=== PATIENT | male | born 1950 | race Caucasian/White ===

== ENCOUNTER 2016-12-20 15:34 | Emergency (ER) | payer OTHER ==
--- NOTE | 2016-12-20 16:32 | Diag Imaging Result Document ---
PROCEDURE NAME: ANKLE COMPLETE LEFT - 12/20/2016 LEFT ANKLE, THREE VIEWS: FINDINGS: No fracture. No dislocation. Minimal medial joint space narrowing. IMPRESSION: No acute bony injury.
--- NOTE | 2016-12-20 16:43 | PROVIDER DOCUMENTATION ---
HPI-Musculoskeletal Pain/Inj - GENERAL Chief Complaint: Extremity Pain Stated Complaint: LEFT LEG PAIN/RT SHOULDER PAIN Time Seen by Provider: 12/20/16 16:26 Source: patient - HX OF PRESENT ILLNESS-MUSKULOSKELTAL Nature of Presenting Problem: Pt is a 66 y/o male c chief complaint of contusion to his L ankle and R shoulder x 1 week. Pt states he recalls hitting his shoulder but does not recall injuring his ankle. Pt is on plavix and states he bruises easily. Pt was told by a family member that he may have a blood clot in his ankle because of the contusion. Pt has a h/o severe anxiety. On arrival, pt is mildly anxious but in no acute distress. He denies shortness of breath and chest pain. Review of Systems - Adult - REVIEW OF SYSTEMS - ADULT Constitutional: reports: no symptoms reported. denies: chills, fatique Eyes: reports: no symptoms reported. denies: blurred vision, double vision Ears, Nose, Mouth & Throat: reports: no symptoms reported. denies: ear pain, nose pain Cardiovascular: reports: no symptoms reported. denies: chest pain, irregular heart rate Respiratory: reports: no symptoms reported. denies: cough, shortness of breath Gastrointestinal: reports: no symptoms reported. denies: abdominal pain, nausea Genitourinary: reports: no symptoms reported. denies: dysuria, hematuria Musculoskeletal: reports: joint pain. denies: joint swelling Integumentary: reports: no symptoms reported. denies: itching, rash Neurological: reports: no symptoms reported. denies: numbness, paresthesia Psychiatric: reports: no symptoms reported. denies: anxiety, emotional problems Endocrine: reports: no symptoms reported. denies: cold intolerance, heat intolerance Hematologic/Lymphatic: reports: no symptoms reported. denies: blood clots, low blood count Allergic/Immunologic: reports: no symptoms reported. denies: allergic reactions , food allergy All Other Systems: Reviewed and Negative Past History - Adult - PAST MEDICAL HISTORY-ADULT Review of Records: reports: Old Records Reviewed, Nursing Assessment Review, Medications Reviewed, Social history reviewed & non-contributory. Major Childhood Illnesses: reports: denies history Cardiovascular: reports: CAD, HTN, hyperlipidemia Respiratory: reports: COPD Gastrointestinal: reports: denies history Obstetrical/Gynecological: reports: denies history Genitourinary: reports: prostate cancer Musculoskeletal: reports: chronic pain (neck and back) Neurological: reports: denies history Psychiatric: reports: anxiety (severe) Endocrine/Immune: reports: denies history Other Conditions: reports: denies history - PRIOR SURGERIES/PROCEDURES Surgical/Procedure History: reports: cardiac stent - IMMUNIZATION STATUS Childhood Immunizations: See Nurse Assessment Flu Vaccine: See Nurse Assessment - FAMILY HISTORY Family History: reviewed, not pertinent - SOCIAL HISTORY Smoking: cigarettes Provider spent 3-5 mins advising pt. on dangers of tobacco.: Discussed manners to quit use, and f/u contacts for add'l counseling. Substance Use: none presently/history of abuse (alcohol) Alcohol Use Frequency: sober (former use) Living Situation: family Physical Exam-Injury Related - Physical Exam-Injury Related Initial Vital Signs Reviewed: Yes General Appearance: appears well, alert, no apparent distress Eyes: PERRL/EOMI, pink conjunctivae Head, Ears, Nose, Mouth & Throat: normocephalic/atraumatic, moist mucous membranes, normal ENT inspection Neck: non-tender, full range of motion, supple Respiratory: chest non-tender, lungs clear, normal breath sounds Cardiovascular: normal peripheral pulses, regular rate, rhythm, no edema Abdominal Exam: normal bowel sounds, non tender, soft Lymphatic: no adenopathy Back Exam: normal inspection, no CVA tenderness Extremity: other (fading contusion to R anterior shoulder; full ROM. Ecchymosis to L medial ankle and L medial foot that appears to be fading; mild tenderness to area of contusion. Homen's sign negative, no pain to the popliteal fossa.) Progress - PLAN OF CARE/RESULTS Progress/Plan/Lab Results: Orders Category Date Time Status ANKLE COMPLETE LEFT [RAD] Stat Exams 12/20/16 15:51 Completed TRAUMA SHOULDER RIGHT [RAD] Stat Exams 12/20/16 15:51 Completed Vital Signs - 24 hr 12/20/16 12/20/16 15:45 17:53 Temperature 98.4 F Pulse Rate 87 73 Respiratory 18 18 Rate Blood Pressure 174/81 136/64 O2 Sat by Pulse 98 98 Oximetry - REASSESSMENT Reassessment #1 Time Reassessed: 17:44 (DISCUSSED C DR. WATKINS ([facility] WHO AGREED C PLAN OF CARE AND AGREED NO NEED FOR A VASCULAR ULTRASOUND DUE TO THE SUPERFICIAL NATURE OF THE HEMATOMA AND IMPROVING SYMTPOMS OVER 7 DAYS AND THE PT IS ALREADY ON ANTICOAGULANTS. ) - XRAY 1 XRAY: Right XRAY Study: Shoulder Impression: Normal XRAY Interpretation: CARMINA RIZVI 2 XRAY: Left XRAY Study: Ankle Impression: Normal XRAY Interpretation: CARMINA RIZVI Departure - Departure Time of Disposition Order: 17:42 DIAGNOSIS: Thrombophlebitis Disposition: HOME 01 Certified Medical Emergency: Emergent Condition: Stable Additional Instructions: FOLLOW UP WITH DR. AVILA (VASCULAR AND GENERAL SURGERY) FOR FURTHER EVALUATION OF SUPERFICIAL VENOUS INFLAMMATION. ED Follow Up Instructions: You have been treated by a care provider in the Emergency Department. These instructions are being provided to you so you can have an understanding of how to care for yourself upon discharge. Upon discharge from the Emergency Department, you are responsible for making arrangements for follow-up care by a physician of your choice. Take all prescribed medications as directed. Return to the Emergency Department immediately for any new or worsening symptoms. You may call the Physician Referral phone number at [phone] to obtain a list of Physicians who are taking new patients. Prescriptions: Clindamycin [Cleocin] 150 mg PO Q6HR #30 capsule Referrals: Augusto Westbrook MD [Primary Care Provider] - Call for Appoint. 1-2days Kevin Avila MD [STAFF PHYSICIAN] - Call for Appoint. 1-2days Instructions: Phlebitis, [id number] Attestation - Physician/ NICOLLE Attestation Patient care was provided by Advanced Practice Provider:: Yes Advanced Practice Provider:: Ankur Tamez Advanced Practice Provider documentation review:: The Mid-level provider documentation, treatment plan and medical decision making was reviewed by the physician who agrees with all treatment and medical decision making by the MLP.
--- NOTE | 2016-12-20 16:50 | Diag Imaging Result Document ---
PROCEDURE NAME: TRAUMA SHOULDER RIGHT - 12/20/2016 RIGHT SHOULDER THREE VIEWS INCLUDING AN AXILLARY Y VIEW: FINDINGS: No separation at the acromioclavicular joint. No fracture. No dislocation. IMPRESSION: No acute bony injury.
[2016-12-20 17:54] VITALS: BP 136/64
== END 2016-12-20 18:04 | disposition home or self-care (01) ==
LOC: ED 15:34
DX: I80.9 Phlebitis and thrombophlebitis of unspecified site (principal); M25.511 Pain in right shoulder; M79.605 Pain in left leg; S90.02XA Contusion of left ankle, initial encounter; S40.011A Contusion of right shoulder, initial encounter; I25.10 Atherosclerotic heart disease of native coronary artery without angina pectoris; I10 Essential (primary) hypertension; E78.5 Hyperlipidemia, unspecified; Z79.899 Other long term (current) drug therapy; J44.9 Chronic obstructive pulmonary disease, unspecified; G89.29 Other chronic pain; M54.2 Cervicalgia; M54.9 Dorsalgia, unspecified; F17.210 Nicotine dependence, cigarettes, uncomplicated; Z79.02 Long term (current) use of antithrombotics/antiplatelets; Z79.82 Long term (current) use of aspirin; Z71.6 Tobacco abuse counseling; Z85.46 Personal history of malignant neoplasm of prostate; Z95.5 Presence of coronary angioplasty implant and graft; M25.572 Pain in left ankle and joints of left foot; W22.8XXA Striking against or struck by other objects, initial encounter

== ENCOUNTER 2019-01-16 11:20 | Inpatient (IN) ==
[~2019-01-16 11:20] MED LIST: SOLU-MEDROL IV ONE
[2019-01-16] MEDS ORDERED: SOLU-MEDROL ONE (11:23)
[2019-01-16] MEDS: LABETALOL IV ONE ×2 (11:29→12:52)
[2019-01-16] MEDS ORDERED: ASPIRIN PO ONE (11:43)
[2019-01-16 12:04] LABS: BASO# 0.06 X1000 (0.0-0.2); BASO% 0.5 % (0.0-0.8); EOS# 0.38 X1000 (0.0-0.7); EOS% 3.5 % (0.0-10.0); HEMATOCRIT 35.6 % (42.0-52.0); HEMOGLOBIN 12.2 g/dL (14.0-18.0); LYMPH# 3.33 X1000 (1.2-3.4); LYMPH% 30.3 % (20.5-51.1); MCHC 34.3 g/dL (33-37); MCV 81.7 FL (81-99); MONO# 1.07 X1000 (0.11-0.59); MONO% 9.7 % (1.7-9.3); MPV 9.4 FL (7.4-10.4); NEUT# 6.14 X1000 (1.4-6.5); PLT 272 X1000 (130-400); RBC 4.36 XMIL (4.7-6.1); RDW 12.7 % (11.5-14.5); WBC 10.98 X1000 (4.8-10.8)
[2019-01-16 12:11] LABS: AGAP 9; ALB/GLOB RATIO 1.4; ALBUMIN 4.1 g/dL (3.5-5.0); ALKALINE PHOSPHATASE 136 U/L (32-122); BUN 7 mg/dL (8-22); CALCIUM 9.3 mg/dL (8.8-10.2); CHLORIDE 96 mmol/L (98-107); CK PROFILE 104 U/L (24-204); COSMO 270; CREATININE 0.8 mg/dL (0.7-1.2); ESTIMATED GFR > 60; GLUCOSE 127 mg/dL (70-104); GOT 24 U/L (10-34); GPT 18 U/L (10-44); SODIUM 135 mmol/L (136-145); TCO2 30 mmol/L (25-35); TOTAL BILIRUBIN 0.38 mg/dL (0.20-1.00); TOTAL PROTEIN 7.1 g/dL (6.3-8.3)
[2019-01-16 12:12] LABS: INR 0.99; PROTIME 13.8 Seconds (11.0-16.0)
[2019-01-16 12:13] LABS: PTT 32.6 Seconds (22.3-41.8)
--- NOTE | 2019-01-16 12:24 | Diag Imaging Result Doc PS360 ---
CHEST-PORTABLE - 01/16/2019 INDICATION: sob/cp COMPARISON: 08/08/2017 FINDINGS: There are diffuse bilateral interstitial infiltrates with curly B lines. Heart size is top normal. No pneumothorax or significant neural effusion. Lungs are hyperexpanded compatible with COPD. IMPRESSION: COPD. Pulmonary edema. Electronically signed by Ronald Martinez 01/16/2019 12:22 PM
--- NOTE | 2019-01-16 12:39 | EKG Report ---
Test Performed on : 01/16/2019 11:27:29 AM Test Reason : SOB Blood Pressure : / mmHG Vent. Rate : 099 BPM Atrial Rate : 099 BPM P-R Int : 150 ms QRS Dur : 082 ms QT Int : 336 ms P-R-T Axes : 066 058 059 degrees QTc Int : 431 ms Normal sinus rhythm. Minimal voltage criteria for LVH, may be normal variant Borderline ECG When compared with ECG of 05-AUG-2017 15:11, premature ventricular complexes. are no longer present Unconfirmed Result
[2019-01-16] MEDS ORDERED: LASIX IV ONE (13:13)
--- NOTE | 2019-01-16 14:14 | PROVIDER DOCUMENTATION ---
This chart was entered by Alicia Andrew Scribe, acting as scribe for Junie Dalton MD. HPI-Respiratory General - General Stated Complaint: RESP DISTRESS Time Seen by Provider: 01/16/19 11:26 Source: patient, EMS Allergies/Adverse Reactions: Patient Allergies Allergy/AdvReac Type Severity Reaction Status Date / Time Penicillins Allergy Unknown RASH Verified 08/04/17 13:08 levofloxacin [From Levaquin] AdvReac Intermediate HIVES Verified 08/04/17 13:08 Home Medications: Home Medication List Medication Instructions Recorded Confirmed Last Taken Type Clonazepam [Klonopin] 1 mg PO BID PRN PRN 08/04/17 08/04/17 Unknown History Lisinopril 20 mg PO DAILY 08/04/17 08/04/17 Unknown History Metoprolol [Lopressor] 50 mg PO DAILY 08/04/17 08/04/17 Unknown History ATORVAstatin [Lipitor] 40 mg PO DAILY tablet 08/10/17 Unknown Rx Acetaminophen [Tylenol] 650 mg PO Q6H PRN PRN #0 tablet 08/10/17 Unknown Rx Albuterol 2.5MG/Ipratrop 0.5MG 3 ml INH [id number] neb 08/10/17 Unknown Rx [Duoneb (A & A)] Amlodipine [Norvasc] 5 mg PO DAILY tablet 08/10/17 Unknown Rx Aspirin EC 81 mg PO DAILY tablet 08/10/17 Unknown Rx Buprenorphine/Naloxone S.l. 0.5 each SL BID tablet 08/10/17 Unknown Rx [Suboxone 8 mg/2 mg] Clonazepam [Klonopin] 1 mg PO TID PRN PRN #0 tablet 08/10/17 Unknown Rx Clopidogrel [Plavix] 75 mg PO DAILY tablet 08/10/17 Unknown Rx Furosemide [Lasix] 40 mg PO EVERY OTHER DAY PRN #0 08/10/17 Unknown Rx tablet Losartan [Cozaar] 25 mg PO DAILY tablet 08/10/17 Unknown Rx Menthol/Zinc Oxide Ointment 1 gm TOP PRN PRN #0 tube 08/10/17 Unknown Rx [Calmoseptine Ointment] Metoprolol [Lopressor] 25 mg PO Q12HR tablet 08/10/17 Unknown Rx Pantoprazole [Protonix] 40 mg PO DAILY@0700 tablet 08/10/17 Unknown Rx Trazodone [Desyrel] 50 mg PO QHS tablet 08/10/17 Unknown Rx - History of Present Illness-Resp Nature of Presenting Problem: Patient is a 68 year old male who presents to the ED via EMS with shortness of breath. States symptoms started yesterday but worsened this morning. History of COPD. EMS states giving patient a breathing treatment and placing patient on CPAP prior to arrival. Quality of Pain: reports: tightness Severity in ED: reports: moderate Onset/Duration: reports: 24 hours ago Timing: reports: still present, getting worse Current Respiratory Medication Therapy: Initiated see nurses note Associated Symptoms: reports: shortness of breath Similar Symptoms Previously?: Yes Recently seen or treated by another doctor?: No Review of Systems - Adult - REVIEW OF SYSTEMS - ADULT ROS:: limited per condition Constitutional: reports: no symptoms reported Eyes: reports: no symptoms reported Ears, Nose, Mouth & Throat: reports: no symptoms reported Cardiovascular: reports: no symptoms reported Respiratory: reports: shortness of breath. denies: cough, hemoptysis, wheezing Gastrointestinal: reports: no symptoms reported Genitourinary: reports: no symptoms reported Musculoskeletal: reports: no symptoms reported Integumentary: reports: no symptoms reported Neurological: reports: no symptoms reported Psychiatric: reports: no symptoms reported Endocrine: reports: no symptoms reported Hematologic/Lymphatic: reports: no symptoms reported Allergic/Immunologic: reports: no symptoms reported All Other Systems: Reviewed and Negative Past History - Adult - PAST MEDICAL HISTORY-ADULT Review of Records: reports: Nursing Assessment Review, Medications Reviewed, Social history reviewed & non-contributory. Major Childhood Illnesses: reports: denies history Cardiovascular: reports: CAD, HTN, hyperlipidemia Respiratory: reports: COPD Gastrointestinal: reports: GERD, other (H.Pylori) Obstetrical/Gynecological: reports: denies history Genitourinary: reports: prostate cancer Musculoskeletal: reports: chronic pain (neck and back) Neurological: reports: denies history Psychiatric: reports: anxiety (severe) Endocrine/Immune: reports: denies history Other Conditions: reports: denies history - PRIOR SURGERIES/PROCEDURES Surgical/Procedure History: reports: cardiac stent - IMMUNIZATION STATUS Childhood Immunizations: See Nurse Assessment Flu Vaccine: See Nurse Assessment - FAMILY HISTORY Family History: reviewed, not pertinent - SOCIAL HISTORY Smoking: denies Living Situation: alone Physical Exam-General - PHYSICAL EXAM-ADULT Initial Vital Signs Reviewed: Yes - CONSTITUTIONAL General Appearance: alert, moderate distress. negative: lethargic, slow to respond - GASTROINTESTINAL (ABDOMEN) Abdominal Exam: normal bowel sounds, non tender, soft. negative: guarding, rebound - MUSCULOSKELETAL Extremity: non-tender, normal inspection. negative: swelling, tenderness - SKIN Integumentary: normal color, normal turgor, warm/dry. negative: cyanosis, jaundice - NEUROLOGIC Neurologic: grossly normal - PSYCHIATRIC Psych/Mental Status: normal mood/affect, oriented x 3. negative: anxious, paranoid Progress - PLAN OF CARE/RESULTS Progress/Plan/Lab Results: Vital Signs - 8 hr 01/16/19 11:38 01/16/19 11:39 01/16/19 11:48 Temperature 97.6 F Pulse Rate 88 101 H Respiratory Rate 19 22 Blood Pressure 156/86 224/106 O2 Sat by Pulse Oximetry 99 88 L 100 01/16/19 12:02 01/16/19 12:33 Temperature Pulse Rate 90 87 Respiratory Rate 18 17 Blood Pressure 169/90 164/147 O2 Sat by Pulse Oximetry 100 100 Laboratory Results - last 24 hr 01/16/19 01/16/19 01/16/19 11:30 11:30 11:30 WBC 10.98 H RBC 4.36 L Hgb 12.2 L Hct 35.6 L MCV 81.7 MCH 28.0 MCHC 34.3 RDW Std Deviation 12.7 Plt Count 272 MPV 9.4 Immature Gran % (Auto) 0.0 Neut % (Auto) 56.0 Lymph % (Auto) 30.3 [place] % (Auto) 9.7 H Eos % (Auto) 3.5 Baso % (Auto) 0.5 Immature Gran # (Auto) 0.00 Neut # (Auto) 6.14 Lymph # (Auto) 3.33 [place] # (Auto) 1.07 H Eos # (Auto) 0.38 Baso # (Auto) 0.06 PT INR PTT (Actin FS) Sodium 135 L Potassium 5.0 Chloride 96 L Carbon Dioxide 30 Anion Gap 9 BUN 7 L Creatinine 0.8 Estimated GFR/1.73 m2 > 60 BUN/Creatinine Ratio 9 Glucose 127 H Calculated Osmolality 270 Calcium 9.3 Total Bilirubin 0.38 AST 24 ALT 18 Alkaline Phosphatase 136 H Creatine Kinase 104 Troponin T Pfm-[id number]-Ksfqwcoelao Pept 1929 H Total Protein 7.1 Albumin 4.1 Globulin 3.0 Albumin/Globulin Ratio 1.4 01/16/19 01/16/19 11:30 11:30 WBC RBC Hgb Hct MCV MCH MCHC RDW Std Deviation Plt Count MPV Immature Gran % (Auto) Neut % (Auto) Lymph % (Auto) [place] % (Auto) Eos % (Auto) Baso % (Auto) Immature Gran # (Auto) Neut # (Auto) Lymph # (Auto) [place] # (Auto) Eos # (Auto) Baso # (Auto) PT 13.8 INR 0.99 PTT (Actin FS) 32.6 Sodium Potassium Chloride Carbon Dioxide Anion Gap BUN Creatinine Estimated GFR/1.73 m2 BUN/Creatinine Ratio Glucose Calculated Osmolality Calcium Total Bilirubin AST ALT Alkaline Phosphatase Creatine Kinase Troponin T < 0.010 Myx-B-Vpqgqecwabm Pept Total Protein Albumin Globulin Albumin/Globulin Ratio Orders Category Date Time Status Cardiac Monitoring DIRECTED Care 01/16/19 11:44 Active Oxygen Therapy- ED Nursing DIRECTED Care 01/16/19 11:44 Active Saline Loc NOW Care 01/16/19 11:44 Active CHEST-PORTABLE [RAD] Stat Exams 01/16/19 11:46 Completed CBC WITH ELECTRONIC DIFF [HEME] Stat Lab 01/16/19 11:30 Completed CK PROFILE [SP CHEM] Stat Lab 01/16/19 11:30 Completed COMPREHENSIVE METABOLIC PANEL [CHEM] Stat Lab 01/16/19 11:30 Completed PRO B-NATRIURETIC PEPTIDE Stat Lab 01/16/19 11:30 Completed PROTIME WITH INR [COAG] Stat Lab 01/16/19 11:30 Completed PTT [COAG] Stat Lab 01/16/19 11:30 Completed TROPONIN T Stat Lab 01/16/19 11:30 Completed Aspirin Med 01/16/19 11:43 Discontinued 325 mg PO NOW ONE Labetalol Med 01/16/19 11:29 Discontinued 20 mg IV NOW ONE Methylprednisolone Sod Succ [Solu-Medrol] Med 01/16/19 11:23 Discontinued 125 mg .ROUTE .STK-MED ONE Methylprednisolone Sod Succ [Solu-Medrol] Med 01/16/19 11:20 Discontinued 125 mg IV NOW ONE BIPAP Urgent Oth 01/16/19 11:30 Active CP/SOB/Palp >45 yrs of Age Stat Oth 01/16/19 11:43 Ordered EKG [EKG] Stat Ther 01/16/19 11:44 Draft Result Diagrams: 01/16/19 11:30 01/16/19 11:30 - EKG 1 Time of EKG reading by physician:: 11:27 EKG Read and Signed by:: Junie Dalton EKG Interpretation (*Must complete 3 of following elements*): Abnormal Rate: 99 Rhythm: normal sinus rhythm QRS: LVH (minimal voltage criteria) [place] Interval: normal Comments: borderline ECG - XRAY 1 XRAY Study: Chest Impression: See EMR Report ( CHEST-PORTABLE - 01/16/2019 INDICATION: sob/cp COMPARISON: 08/08/2017 FINDINGS: There are diffuse bilateral interstitial infiltrates with curly B lines. Heart size is top normal. No pneumothorax or significant neural effusion. Lungs are hyperexpanded compatible with COPD. IMPRESSION: COPD. Pulmonary edema. Electronically signed by Ronald Martinez 01/16/2019 12:22 PM 01/16/19 1222 Interpreting Physician: Ronald Martinez MD Dictated Date/Time: 01/16/19 1219 cc: Junie Dalton MD; Srinivas Wright MD) - CONSULTS/PCP/HOSPITALIST Notification #1 *Consult/PCP/Hospitalist*: HERBER Brewer for Hospitalist Time Discussed: 13:08 (Dr. Correa accepted admit) Reason/Comments: Dr. Dalton consulted with Daniella about patient. Consult Disposition: Admit Departure - Departure Date of Disposition Decision: 01/16/19 Time of Disposition Decision: 13:09 DIAGNOSIS: CHF (congestive heart failure) Disposition: ADMITTED INPATIENT 09 Certified Medical Emergency: Emergent Condition: Stable Referrals and Follow-Ups: Srinivas Wright MD [Primary Care Provider] - - Critical Care Note This patient required my direct & personal management of CC.: Yes Total Time (mins): 31 Critical Care Statement: This patient required my direct personal management to treat or rule out processes, the absence of which, could potentiallly result in sudden, clinically significant life or limb threatening deterioration. Attestation - Physician/ NICOLLE Attestation The physician spent face to face time with patient:: Yes Advanced Practice Provider documentation review:: Supervising physician onsite and consulted in the evaluation and care of this patient. The physician did have a face to face encounter with the patient. This chart was documented by the indicated scribe, (Alicia Andrew, Fer) and accurately reflects the services I performed and decisions made by me, Junie Dalton MD, as attested by the provider's signature.
--- NOTE | 2019-01-16 15:49 | HISTORY AND PHYSICAL ---
PRIMARY CARE PROVIDER: Dr. Srinivas Wright. WEB SEARCH EVALUATOR: Dr. Andersen. CHIEF COMPLAINT: Acute shortness of breath. HISTORY OF PRESENT ILLNESS: Mr. Madrigal in a 68-year-old male who carries a past medical history most notable for COPD. He wears home O2 mainly at night. Hypertension, hyperlipidemia, anxiety and depression, minimal aortic stenosis, opiate abuse on Suboxone for neck and back pain. He reported to the ED after an acute onset of shortness of breath. The patient was trying to get into the shower and became acutely short of breath. He states he barely made it to his home O2 to put on his oxygen and almost could not call 911 he was so short of breath. He was placed on CPAP and given a breathing treatment prior to arrival. He continued to be short of breath in the ER, was placed on BiPAP. Chest x-ray revealed pulmonary edema and COPD. ProBNP was elevated in at 1929. He states over the last couple of months, he has had an increase in shortness of breath and he has been having to wear his O2 intermittently throughout the day. He is on home Lasix for bilateral lower extremity edema. His edema per him has improved. He does have 1+ pitting edema around his ankles. He reports over the last couple of weeks, he has had to elevate them on pillows. He does not report any orthopnea. He will be given a dose of IV Lasix in the ED and will be admitted for probable congestive heart failure. He denies any chest pain, palpitation, fever or chills. No wheezing, no productive cough. However, here after breathing treatments, he was able to spit up some pink-tinged sputum. We will send it off for culture. He did state this is not like his normal COPD exacerbation. This shortness of breath came on very acutely to where he felt like he was not going to make it to call for help. No nausea, vomiting, diarrhea, or diaphoresis. PAST MEDICAL HISTORY: 1. COPD. 2. Mild aortic stenosis. 3. Hypertension. 4. Hyperlipidemia. 5. Anxiety and depression. 6. Opiate abuse on Suboxone. 7. Neck and back pain. PAST SURGICAL HISTORY: Stent placement 2-3 years ago. SOCIAL HISTORY: He lives with his . He was a 2 to 3 pack per day smoker for many years. However, he quit 2 to 3 years ago after receiving his stent. No alcohol or illicit drug use. FAMILY HISTORY: Reviewed and noncontributory. ALLERGIES: Penicillin and Levaquin. HOME MEDICATIONS: Have not been reconciled. REVIEW OF SYSTEMS: A 14-point review of systems completely negative except for those mentioned in HPI. PHYSICAL EXAMINATION: VITAL SIGNS: Temperature is 97.6 degrees, heart rate 101, respirations 22, initial blood pressure was 224/106, blood pressure is down to 137/86, O2 is 100% on BiPAP. GENERAL: Mr. Madrigal is a 68-year-old male who is sitting up on the stretcher with his BiPAP on in no acute distress. HEENT: Atraumatic, normocephalic. PERRL. NECK: Supple. Trachea midline. CV: S1, S2 appreciated. No murmurs, gallops, rubs noted. RESPIRATORY: Lung sounds clear but diminished throughout all lung cortez. GI: Soft, nontender, nondistended. Positive bowel sounds 4 quadrants. EXTREMITIES: Bilateral 1+ pitting edema to ankles. No clubbing, no cyanosis. NEUROLOGIC: The patient is awake, alert, oriented. Follows commands. Moves all extremities. No focal deficits noted. ASSESSMENT AND PLAN: 1. Questionable new onset congestive heart failure. ProBNP is elevated. Chest x-ray shows pulmonary edema versus cor pulmonale secondary to the patient's chronic obstructive pulmonary disease. We will recheck an echocardiogram. We will continue with IV diuretics. Trend his cardiac enzymes. He denies any chest discomfort. However, he did feel that this was different from his chronic obstructive pulmonary disease exacerbations. This came on more acutely. We will recheck a chest x-ray in the a.m. and recheck a proBNP as well as a magnesium. Continue home medications when verified and continue to trend his cardiac enzymes. 2. Chronic obstructive pulmonary disease history. We will continue with supplemental O2 and DuoNeb p.r.n. Per his report, he has not been wheezing. Will continue home medications when verified. 3. Mild aortic stenosis, aware. Again will recheck an echocardiogram. 4. Anxiety and depression. We will continue with home medications when reconciled. 5. Opiate use secondary to neck and back pain. The patient is now on Suboxone, I believe from the [facility] [place] [facility]. 6. Hypertension. Will continue home medications when reconciled. 7. Hyperlipidemia. Will continue home medications when reconciled. 8. Further recommendation to follow physician evaluation, laboratory, and diagnostic data. Dictated by HERBER Ward for Kavon Muñoz MD Patient seen and examined by me face to face, all the laboratory, vitals signs and images were reviewed, patient presented to the ED complaining of shortness of breath, which was relatively acute onset, he carries a medical history of COPD, hypertension, but he has now some jugular distention, elevated BNP, pulmonary edema, no wheezing but decreased breath sound bilaterally, with some crepitus, rales, probably new onset CHF, he will be placed on diuretics, cardiology will be consulted, transfer to the [facility] unit, I agree with the rest of the REGULATOR MECHANIC's assessment and plan, Kavon Garzon MD. cc: MD Davide Everett MD Jeb S. Hornsby, MD [facility]
--- NOTE | 2019-01-16 16:36 | CARDIOLOGY CONSULTATION ---
DATE: 01/16/2019 HISTORY OF PRESENT ILLNESS: A 68-year-old gentleman, was asked to consult today. He has known coronary artery disease, COPD. Comes with complaints of increasing shortness of breath for the last 2 weeks. He has chronic COPD; however, he has noticed increasing shortness of breath. He became orthopneic. He has also noticed episodes of chest discomfort which he describes as tightness across his bilateral lower sternal region. He came to the emergency room. Chest x-ray revealed heart failure. The patient also has COPD, Lasix 80+ 40 mg was given, since then put on BiPAP and he has improved. Now he is on partial non-rebreather. There is no history of palpitations. There is no history of dizziness or syncope. PERTINENT REVIEW OF SYSTEMS: Gastrointestinal: There is no history of nausea, vomiting, diarrhea. There is no history of hematemesis or melena. Central Nervous System: No focal weakness to suggest a CVA or TIA. PAST MEDICAL HISTORY: 1. COPD. 2. PTCA stent placement in the past. 3. Moderate obstructive lung disease. 4. Hypertension. 5. Hyperlipidemia. 6. Tobacco abuse. Carotid disease. 7. Depression and anxiety. 8. Chronic pain. 9. Intermittent confusion in the past. 10. History of carcinoma of the prostate. 11. Last cardiac catheterization 08/09/2017 revealed left main diffuse calcification, left anterior descending artery approximately 40-50% luminal irregularities. Circumflex sequential 40-50% stenosis. RCA dominant. Patent stent. PDA 50% stenosis. Last ejection fraction was 60%. CURRENT MEDICATIONS: His current home medications include: Aspirin 81 mg a day, furosemide 40, mg a day. Losartan 25, Lopressor 25 p.o. b.i.d., omeprazole 40, sertraline 50. EXAMINATION: Vital Signs: Blood pressure was 158/63. Cardiovascular: Normal jugular venous pressure. First and second heart sounds were heard. Neck: There is no thyromegaly. No carotid bruit. Respiratory: Bibasilar inspiratory crepitations. Abdomen: Soft, nontender. There was no guarding or rigidity. Bowel sounds were heard. Central Nervous System: Alert and oriented. Was moving all 4 extremities. Extremities: Examination of his extremities revealed mild pitting pedal edema. WBC 10.98, hemoglobin 12.2, hematocrit 35, platelet count of 272,000. Chemistry: Sodium 135 potassium 5.0, BUN 7, creatinine 0.8. First set of cardiac enzymes was negative. ProBNP elevated at 1929. Chest x-ray heart failure. ASSESSMENT AND PLAN: Mr. David Madrigal is a 68-year-old gentleman who has history of COPD, coronary artery disease, stent placement to right coronary artery in the past, hypertension, hyperlipidemia. He comes in with complaints of increasing shortness of breath for the last 2 weeks associated with chest discomfort. PLAN: 1. We will get two more sets of cardiac enzymes to make sure there is no non-Q-wave myocardial infarction. 2. For his heart failure, he has been started on IV Lasix 40 mg b.i.d. We will continue the same. 3. Once he is euvolemic, if his cardiac enzymes are negative we will plan for a Cardiolite stress test to rule out and assess for ischemia. 4. For hypertension, continue with his losartan and metoprolol. 5. He has hyperlipidemia. Continue with atorvastatin 20. 6. Chronic obstructive pulmonary disease. Continue with his home medications. 7. Last ejection fraction was normal. The patient has diastolic heart failure. Will get an echocardiogram to reassess cardiac and valvular function. Thank you for the consult. We will follow hospital course. cc: Davide Ruiz MD
[2019-01-16] MEDS ORDERED: NITROGLYCERIN SL PRN (18:23)
[2019-01-16] MEDS: LASIX IV SCH (19:18)
[2019-01-16] MEDS: DUONEB (A & A) INH SCH (20:32)
[2019-01-16] MEDS: KLONOPIN PO SCH (20:40)
[2019-01-16] MEDS: LIPITOR PO SCH (20:40)
[2019-01-16] MEDS: LOPRESSOR PO SCH (20:41)
[2019-01-16] MEDS: SUBOXONE 8 MG/2 MG SL SCH ×2 (20:41→23:14)
[2019-01-16] MEDS ORDERED: ZOLOFT PO SCH (21:00)
[2019-01-17] MEDS: DUONEB (A & A) INH SCH ×4 (02:10→21:10)
[2019-01-17] MEDS ORDERED: ZOFRAN IV PRN (06:14)
[2019-01-17 06:46] LABS: EOS# 0.04 X1000 (0.0-0.7); EOS% 0.4 % (0.0-10.0); HEMATOCRIT 33.5 % (42.0-52.0); HEMOGLOBIN 11.4 g/dL (14.0-18.0); IMM GRAN# 0.02 X1000 (0.0-0.04); IMM GRAN% 0.2 % (0.0-0.5); LYMPH# 1.07 X1000 (1.2-3.4); LYMPH% 9.7 % (20.5-51.1); MCV 82.3 FL (81-99); MONO# 0.54 X1000 (0.11-0.59); MONO% 4.9 % (1.7-9.3); MPV 9.8 FL (7.4-10.4); NEUT# 9.35 X1000 (1.4-6.5); NEUT% 84.8 % (42.2-75.2); PLT 229 X1000 (130-400); RBC 4.07 XMIL (4.7-6.1); RDW 12.8 % (11.5-14.5); WBC 11.02 X1000 (4.8-10.8)
[2019-01-17 07:17] LABS: AGAP 12; BUN 16 mg/dL (8-22); CALCIUM 9.5 mg/dL (8.8-10.2); CHLORIDE 91 mmol/L (98-107); COSMO 275; ESTIMATED GFR > 60; GLUCOSE 171 mg/dL (70-104); MAGNESIUM 1.4 mg/dL (1.5-2.7); POTASSIUM 4.1 mmol/L (3.5-5.1); SODIUM 135 mmol/L (136-145); TCO2 32 mmol/L (25-35)
--- NOTE | 2019-01-17 07:18 | Diag Imaging Result Doc PS360 ---
EXAM: CHEST-PORTABLE INDICATION: CHF TECHNIQUE: One view COMPARISON: 01/16/2019 FINDINGS: Interstitial edema has improved during the interval. There is still mild interstitial thickening. No new consolidation is identified. Cardiac silhouette is stable. IMPRESSION: Interval improvement of pulmonary edema. Electronically signed by Ankur Singleton 01/17/2019 7:15 AM
--- NOTE | 2019-01-17 07:25 | EKG Report ---
Test Performed on : 01/17/2019 06:49:33 AM Test Reason : Heart Failure Admission Blood Pressure : / mmHG Vent. Rate : 085 BPM Atrial Rate : 085 BPM P-R Int : 146 ms QRS Dur : 080 ms QT Int : 372 ms P-R-T Axes : 071 059 058 degrees QTc Int : 442 ms Normal sinus rhythm. Normal ECG When compared with ECG of 17-JAN-2019 03:37, (Unconfirmed) No significant change was found Unconfirmed Result
[2019-01-17] MEDS: DUONEB (A & A) INH PRN (07:40)
[2019-01-17 07:42] LABS: T4 5.72 ug/dL (4.60-12.00); TSH 0.59 uIUmL (0.27-4.20)
--- NOTE | 2019-01-17 08:05 | EKG Report ---
Test Performed on : 01/17/2019 03:37:24 AM Test Reason : Heart Failure Admission Blood Pressure : / mmHG Vent. Rate : 093 BPM Atrial Rate : 093 BPM P-R Int : 152 ms QRS Dur : 078 ms QT Int : 360 ms P-R-T Axes : 063 057 058 degrees QTc Int : 447 ms Normal sinus rhythm. Normal ECG When compared with ECG of 16-JAN-2019 11:27, (Unconfirmed) No significant change was found Unconfirmed Result
[2019-01-17] MEDS: SUBOXONE 8 MG/2 MG SL SCH ×2 (08:59→20:09)
[2019-01-17] MEDS: KLONOPIN PO SCH ×2 (09:00→20:10)
[2019-01-17] MEDS ORDERED: MAGNESIUM SULFATE 2 GM/S.W.I. 2 GM/50 ML IVPB IV ONE (09:00)
[2019-01-17] MEDS: PRILOSEC PO SCH (09:00)
[2019-01-17] MEDS ORDERED: KLONOPIN PO SCH (09:00)
[2019-01-17] MEDS: NEURONTIN PO SCH ×4 (09:01→20:10)
[2019-01-17] MEDS: KLOR-CON PO SCH (09:01)
[2019-01-17] MEDS: ASPIRIN EC PO SCH (09:01)
--- NOTE | 2019-01-17 09:45 | PROGRESS NOTE ---
DATE: 01/17/2019 SUBJECTIVE: As per the patient, he feels better compared with admission, but he is still having some shortness of breath. He has no wheezing at this time, but he is on a Venturi mask. The patient has been evaluated by Cardiology Department. He has a history of coronary artery disease. He had a stent placed to the right coronary artery in the past, hypertension, and hyperlipidemia. He came in complaining of shortness of breath and some chest discomfort for the past couple of weeks. Yesterday, he had some mild JVD, but not today. He has been getting diuretics. Cardiac enzymes are negative x4. BNP still elevated and actually higher compared with yesterday. Chest x- ray showed interval improvement or pulmonary edema, probably he will have a stress test done today. OBJECTIVE: Vital Signs: Temperature 98.3 degrees, pulse 98 respiratory rate 22, blood pressure 127/65, and oxygen saturation 98 on a Venturi mask with 15% oxygen flow. HEENT: Head is normocephalic. No trauma. PERRLA. Neck: Supple. No JVD today. Central trachea. Chest: Decreased breath sounds globally with prolonged expiratory phase. No wheezing. Some mild scattered crepitus at the bases. Abdomen: Soft, nontender, and nondistended. No hepatosplenomegaly. Extremities: 1+ pitting edema to ankles no clubbing no cyanosis. Neurological: The patient is awake, alert, and oriented. He is following commands, but he seems to be a little confused on and off. LABORATORY: WBC 11, hemoglobin 11.4, hematocrit 33.5, and platelets 229,000. Sodium 135, potassium 4.1, chloride 91, bicarbonate 32, BUN 16, creatinine 1, glucose 171, and magnesium 1.4. ASSESSMENT AND PLAN: 1. Patient admitted complaining of shortness of breath with a questionable new onset CHF, pro BNP still elevated and actually higher compared with yesterday. We have been diuresing this patient, he feels better. We will wait for the echocardiogram result. Cardiology Department on board. X-ray looks better compared with yesterday, and actually there is an interval resolution of the pulmonary edema. 2. Chronic obstructive pulmonary disease, not in exacerbation at this time. He is hypoxemic. We will continue with oxygen supplementation. He is on a Ventimask right now. He has not been wheezing. 3. Mild aortic stenosis. Aware. 4. Past medical history of coronary artery disease with stent placement to the right coronary artery, aware. 5. Anxiety and depression. Continue home medication. 6. Opiate use secondary to neck and back pain. The patient is now on Suboxone. 7. Hypertension. Continue with home medication. Cardiology on board. 8. Hyperlipidemia aware. 9. Hypomagnesemia. I will replace the magnesium. cc: Kavon Muñoz MD
[2019-01-17] MEDS ORDERED: ATIVAN IV ONE (10:34)
[2019-01-17] MEDS ORDERED: LEXISCAN ONE (12:19)
[2019-01-17] MEDS ORDERED: ALBUTEROL NEB ONE (12:29)
[2019-01-17] MEDS ORDERED: AMINOPHYLLINE ONE (12:29)
--- NOTE | 2019-01-17 12:36 | ECHO REPORT ---
ORDER DATE: 01/16/2019 INDICATION: CHF. FINDINGS: 1. The right atrium is mildly enlarged at 4.3 cm. 2. Mild tricuspid regurgitation. The RV systolic pressure is 44 mmHg. 3. Normal RV size and systolic function. 4. No significant pulmonic insufficiency. 5. Normal left atrial size with a dimension of 3.4 cm. 6. No mitral prolapse. I do not see any significant mitral regurgitation. 7. Normal LV size, end-diastolic dimension of 5 cm. Normal wall thicknesses with a posterior and interventricular septal wall thickness of 1.0 cm each. Probable normal LV systolic function with an estimated EF of 55%. This is a difficult study with difficult windows. On some views, there is a suggestion of hypokinesis of the inferior and inferior septum. Again the windows are quite limited with incomplete visualization of all endocardial borders. Would consider alternative modality to assess the LV function. 8. The aortic valve is calcified with a restriction in motion. Peak gradient across valve is 40 with a mean of 27. The valve area was calculated to be 1.1 cm2. This would likely be consistent with a moderate degree of aortic stenosis. No aortic insufficiency. 9. The aorta appears normal in visualized segments. 10. There is no pericardial effusion seen. cc: Iglesia Hensley MD
[2019-01-17] MEDS: LASIX IV SCH (14:24)
[2019-01-17] MEDS: LOPRESSOR PO SCH ×2 (14:28→20:10)
--- NOTE | 2019-01-17 14:48 | Diag Imaging Result Document ---
PROCEDURE NAME: MYOCARDIAL PERF SCAN, STR/REST - 01/17/2019 PROCEDURE: Lexiscan Cardiolite stress test. SUMMARY: Lexiscan was infused per standard protocol. Patient developed chest discomfort and shortness of breath, was given aminophylline 125 mg intravenously. Stress electrocardiogram was negative for ischemia. Cardiolite was injected, 13.1 mCi of Cardiolite was injected for the rest phase, 36 millicuries of Cardiolite was injected for the stress phase. Images revealed a moderate- sized, moderate grade fixed defect in the inferior inferoapical wall diagnostic of infarct or scar. Left ventricular ejection fraction by gated SPECT was 74%. There is no evidence of ischemia. Left ventricular cavity size was normal. CONCLUSIONS: 1. Negative Lexiscan stress electrocardiogram. 2. Myocardial perfusion images reveal no evidence of ischemia. 3. There was fixed defect in the inferior inferoapical wall diagnostic of infarct or scar. 4. Left ventricular ejection fraction by gated SPECT was 74%. cc: Davide Ruiz MD
[2019-01-17 15:28] LABS: CK INDEX 1.2 (0.0-2.5); CK-MB 3.71 ng/mL (0.0-5.0)
[2019-01-17] MEDS: LIPITOR PO SCH (20:11)
[2019-01-18] MEDS: DUONEB (A & A) INH SCH ×3 (03:15→15:15)
[2019-01-18] MEDS: LASIX IV SCH (04:31)
[2019-01-18 05:19] LABS: BASO# 0.01 X1000 (0.0-0.2); BASO% 0.1 % (0.0-0.8); EOS# 0.02 X1000 (0.0-0.7); EOS% 0.2 % (0.0-10.0); HEMATOCRIT 31.8 % (42.0-52.0); HEMOGLOBIN 10.5 g/dL (14.0-18.0); IMM GRAN# 0.02 X1000 (0.0-0.04); IMM GRAN% 0.2 % (0.0-0.5); LYMPH# 2.83 X1000 (1.2-3.4); LYMPH% 23.4 % (20.5-51.1); MCH 27.7 PG (27-31); MCV 83.9 FL (81-99); MONO% 9.9 % (1.7-9.3); MPV 9.6 FL (7.4-10.4); NEUT% 66.2 % (42.2-75.2); PLT 231 X1000 (130-400); RBC 3.79 XMIL (4.7-6.1); RDW 13.1 % (11.5-14.5); WBC 12.08 X1000 (4.8-10.8)
[2019-01-18 05:38] LABS: AGAP 7; ALB/GLOB RATIO 1.4; ALBUMIN 4.1 g/dL (3.5-5.0); ALKALINE PHOSPHATASE 103 U/L (32-122); BUN 20 mg/dL (8-22); CALCIUM 9.1 mg/dL (8.8-10.2); CHLORIDE 91 mmol/L (98-107); COSMO 278; CREATININE 1.1 mg/dL (0.7-1.2); ESTIMATED GFR > 60; GLUCOSE 134 mg/dL (70-104); GOT 24 U/L (10-34); GPT 17 U/L (10-44); POTASSIUM 3.6 mmol/L (3.5-5.1); SODIUM 137 mmol/L (136-145); TCO2 39 mmol/L (25-35); TOTAL BILIRUBIN 0.67 mg/dL (0.20-1.00); TOTAL PROTEIN 7.1 g/dL (6.3-8.3)
[2019-01-18] MEDS: PRILOSEC PO SCH (06:06)
[2019-01-18] MEDS: KLONOPIN PO SCH ×4 (06:06→20:45)
[2019-01-18] MEDS: DUONEB (A & A) INH PRN ×3 (07:29→19:41)
[2019-01-18] MEDS: LOPRESSOR PO SCH ×2 (08:52→20:49)
[2019-01-18] MEDS: SUBOXONE 8 MG/2 MG SL SCH ×2 (08:53→20:47)
[2019-01-18] MEDS: KLOR-CON PO SCH (08:53)
[2019-01-18] MEDS: ASPIRIN EC PO SCH (08:53)
[2019-01-18] MEDS: NEURONTIN PO SCH ×3 (08:53→20:45)
--- NOTE | 2019-01-18 10:17 | PROGRESS NOTE ---
DATE: 01/18/2019 SUBJECTIVE: The patient seems to be doing better today, he is using a nasal cannula and the oxygen saturation has been stable. Echocardiogram looks stable. Some ventricular systolic function elevation. This patient has COPD. 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 This patient is anxious and I will continue with his Klonopin 3 times a day. I will stop the furosemide IV twice a day and I will put him on a single low dose daily. He will be transferred to the floor and will start working with Physical Therapy. OBJECTIVE: Vital Signs: Temperature 98.3 degrees, pulse 89, respiratory rate 18, blood pressure 154/72, oxygen saturation 98 on 6 L of nasal cannula. HEENT: Head normocephalic, no trauma. PERRLA. Neck: Supple. No JVD. No masses. Central trachea. Chest: Decreased breath sounds globally with prolonged expiratory phase. No wheezing. Some mild scattered crepitus at the bases. Abdomen: Soft, nontender, nondistended. No hepatosplenomegaly. Extremities: Trace to 1+ lower extremity edema to the ankles. No clubbing. No cyanosis. Neurological: The patient is awake, alert, and oriented. He is following commands. LABORATORY: WBC 12, hemoglobin 10.5, hematocrit 31.8, platelets 231,000. Sodium 137, potassium 3.6, chloride 91, bicarbonate 39, BUN 20, creatinine 1.1, glucose 134, calcium 9.1, magnesium 1.4. LFTs normal. ASSESSMENT AND PLAN: 1. The patient admitted complaining of shortness of breath with questionable new onset congestive heart failure, probably this patient has some diastolic dysfunction due to his chronic obstructive pulmonary disease. The right ventricular systolic function is somehow elevated. Ejection fraction looks normal. I will stop the IV Lasix and I will put him on a single dose of Lasix daily, low dose and I will monitor. 2. Chronic obstructive pulmonary disease, not in exacerbation at this moment, but when he came in, he was really short of breath. No wheezing though. Initially he was placed on a Ventimask because he was requiring high oxygen flow, but now he is back to the nasal cannula and he is doing better. 3. Mild aortic stenosis. Aware. 4. Past medical history of coronary artery disease with stent placement to the right coronary artery, aware. 5. Anxiety and depression. Continue with Klonopin 3 times a day. 6. Opiate use secondary to neck and back pain. The patient is now on Suboxone. 7. Hypertension. Continue home medication, Cardiology on board. 8. Hyperlipidemia, aware. 9. Hypomagnesemia. Magnesium has been replaced. This patient had a stress test done yesterday that did not show any acute problem. He will be transferred to the floor. We will continue with same management. I will ask Physical Therapy to evaluate this patient and hopefully in the next 24 to 48 hour he will be discharged home. cc: Kavon Muñoz MD
[2019-01-18] MEDS: LIPITOR PO SCH (20:49)
[2019-01-18] MEDS: SINGULAIR PO SCH (20:52)
[2019-01-19] MEDS: DUONEB (A & A) INH SCH ×3 (02:52→08:50)
[2019-01-19] MEDS: PRILOSEC PO SCH (06:25)
--- NOTE | 2019-01-19 07:16 | Diag Imaging Result Doc PS360 ---
EXAM: CHEST-PORTABLE 01/19/2019 HISTORY: dyspnea TECHNIQUE: AP portable at 0618 COMMENT: Compared to 01/17/2019 the interstitial opacities present previously particularly over the left base have improved. IMPRESSION: Near resolution of pulmonary edema. Electronically signed by Fernando Santos 01/19/2019 7:14 AM
[2019-01-19 07:55] LABS: BASO# 0.02 X1000 (0.0-0.2); BASO% 0.2 % (0.0-0.8); EOS# 0.24 X1000 (0.0-0.7); EOS% 2.6 % (0.0-10.0); HEMATOCRIT 30.7 % (42.0-52.0); HEMOGLOBIN 10.3 g/dL (14.0-18.0); LYMPH# 2.24 X1000 (1.2-3.4); LYMPH% 24.1 % (20.5-51.1); MCH 28.1 PG (27-31); MCHC 33.6 g/dL (33-37); MCV 83.7 FL (81-99); MONO# 1.11 X1000 (0.11-0.59); MPV 9.7 FL (7.4-10.4); NEUT# 5.67 X1000 (1.4-6.5); NEUT% 61.1 % (42.2-75.2); PLT 211 X1000 (130-400); RBC 3.67 XMIL (4.7-6.1); RDW 12.8 % (11.5-14.5); WBC 9.28 X1000 (4.8-10.8)
[2019-01-19 08:22] LABS: ESTIMATED GFR > 60
[2019-01-19 08:32] LABS: AGAP 11; BUN 14 mg/dL (8-22); CALCIUM 8.7 mg/dL (8.8-10.2); CHLORIDE 88 mmol/L (98-107); COSMO 273; GLUCOSE 135 mg/dL (70-104); MAGNESIUM 1.9 mg/dL (1.5-2.7); POTASSIUM 3.3 mmol/L (3.5-5.1); SODIUM 135 mmol/L (136-145); TCO2 36 mmol/L (25-35)
[2019-01-19] MEDS ORDERED: LASIX PO SCH (09:00)
[2019-01-19] MEDS: SUBOXONE 8 MG/2 MG SL SCH (09:11)
[2019-01-19] MEDS: NEURONTIN PO SCH (09:14)
[2019-01-19] MEDS: KLONOPIN PO SCH (09:14)
[2019-01-19] MEDS: LOPRESSOR PO SCH (09:15)
[2019-01-19] MEDS: ASPIRIN EC PO SCH (09:16)
[2019-01-19] MEDS: SINGULAIR PO SCH (09:16)
[2019-01-19] MEDS: KLOR-CON PO SCH (09:16)
[2019-01-19] MEDS ORDERED: KLOR-CON PO ONE (09:44)
[2019-01-19 11:13] VITALS: BP 117/89
--- NOTE | 2019-01-20 15:13 | DISCHARGE SUMMARY ---
ADMISSION DATE: 01/16/2019 DISCHARGE DATE: 01/19/2019 DISCHARGE DIAGNOSIS: 1. Shortness of breath in a patient with chronic obstructive pulmonary disease. 2. Likely diastolic heart failure exacerbation. 3. Mild aortic stenosis. 4. Past medical history of coronary artery disease with stent placement to the right coronary artery. 5. Anxiety and depression. 6. Opiate use secondary to neck and back pain. 7. Hypertension. 8. Hyperlipidemia. 9. Hypomagnesemia. PROCEDURES PERFORMED: Chest x-ray dated 01/16/2019 impression COPD and pulmonary edema. Echocardiogram dated 01/16/2019, ejection fraction 55% with possible hypokinesis of the inferior and area at inferior septum. Right ventricular systolic pressure elevated at 44 mmHg, moderate degree of aortic stenosis, no aortic insufficiency. Stress test dated 01/17/2019 conclusion no evidence of ischemia. Chest x-ray dated 01/19/2019 impression near resolution of the pulmonary edema. HOSPITAL COURSE: 68-year-old male admitted on 01/16/2019, past medical history of COPD on home O2, hypertension, hyperlipidemia, anxiety, depression, aortic stenosis, opiate abuse on Suboxone for neck and back pain, presented to emergency department with shortness of breath, apparently he was trying to get into the shower and became acutely short of breath, he states that he put his oxygen and called 911 because of his shortness of breath, he was placed on the CPAP and given treatment upon arrival. He continued to be short of breath in the emergency department was placed on the BiPAP machine. X-ray showed pulmonary edema and COPD. ProBNP was elevated at 1129 and he states that over the last couple months he has had an increase in his shortness of breath and he has been having to wear his oxygen intermittently throughout the day. Uses home Lasix for bilateral lower extremity edema. His pedal edema per him improved. As per the patient, over the last couple weeks he has been using more pillows than normal but he does not report any orthopnea, he received some days of IV Lasix and then we switched it to p.o. treatment, he was not wheezing but he was short of breath, cardiology department was consulted and they evaluated this patient, they continued with the same treatment and they scheduled a stress test for this patient. This patient has diastolic heart failure, his stress test was within normal limits done on 01/17/2019. Chest x-ray improved his pulmonary edema. We recommended to continue with p.o. Lasix at home and be careful with the amount of fluids. 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 This has been scheduled already. Also, follow up with his primary doctor in 1 week. This patient today is feeling better. He will continue with his home oxygen, x-ray today shows a near resolution of the pulmonary edema, we recommended a low-salt diet. VITAL SIGNS: Temperature 97.6 degrees, pulse 74, respiratory rate 18, blood pressure 117/89, oxygen saturation 95 on 4 L of nasal cannula. HEENT: Head normocephalic, no trauma. PERRLA. Neck: Supple. No JVD. No masses. Central trachea. Chest: Decreased breath sounds globally with prolonged expiratory phase. No wheezing. Some rales at the bases scattered, abdomen soft, nontender, nondistended. No hepatosplenomegaly. Extremities: Trace lower extremity edema to the ankles. No clubbing, no cyanosis. Neurologic: The patient is completely alert and oriented x3. He has been anxious on and off. LABORATORY: WBC 9.2, hemoglobin 10.3, hematocrit 30.7, platelets 211,000, sodium 135, potassium 3.3, chloride 88, bicarbonate 36, BUN 14, creatinine 1, glucose 135, calcium 8.7, magnesium 1.9. DISCHARGE MEDICATIONS: Potassium chloride 10 mEq p.o. q.a.m., Singulair 10 mg p.o. daily, gabapentin 300 mg p.o. t.i.d., Lipitor 20 mg p.o. at bedtime, nitroglycerin sublingual 0.4 mg as needed, omeprazole 20 mg p.o. daily, metoprolol 25 mg p.o. b.i.d., furosemide 40 mg p.o. daily, Suboxone 8 mg/2 mg 0.5 sublingual b.i.d., albuterol sulfate inhalation as needed 4 times a day, sertraline 50 mg p.o. at bedtime and Klonopin 1 mg p.o. t.i.d. TIME SPENT: 35 minutes. cc: MD JOHNATHON Everett
== END 2019-01-19 13:19 | disposition home health service (06) | DRG 291 ==
LOC: SUPCPDRO → ED 11:20 → 3S 13:46 → 3N 01-18 22:05
PROVIDERS: ATTEND Internal Medicine
CPT/HCPCS: 71010; 71045; 78452; 80048; 80053; 81001; 82465; 82550; 82553; 83735; 83880; 84153; 84436; 84443; 84484; 85025; 85610; 85730; 87070; 87205; 93005; 93010; 93017; 93306; 94640; 94761; 94762; 96374; 96375; 97162; 97530; 99285; A9270; A9500; J0280; J0820; J1940; J2060; J2405; J2785; J2930; J3475

== ENCOUNTER 2019-03-27 03:19 | Observation (INO) ==
[2019-03-27] MEDS ORDERED: NITROGLYCERIN TOP ONE (03:26)
--- NOTE | 2019-03-27 03:36 | PROVIDER DOCUMENTATION ---
HPI-General Adult - General Stated Complaint: sob Time Seen by Provider: 03/27/19 03:20 Source: patient, EMS Allergies/Adverse Reactions: Patient Allergies Allergy/AdvReac Type Severity Reaction Status Date / Time Penicillins Allergy Unknown RASH Verified 08/04/17 13:08 levofloxacin [From Levaquin] AdvReac Intermediate HIVES Verified 08/04/17 13:08 Home Medications: Home Medication List Medication Instructions Recorded Confirmed Last Taken Type Albuterol 2.5MG/Ipratrop 0.5MG 3 ml INH [id number] neb 08/10/17 01/16/19 01/15/19 21:00 Rx [Duoneb (A & A)] Aspirin EC 81 mg PO DAILY tablet 08/10/17 01/16/19 01/16/19 09:00 Rx Buprenorphine/Naloxone S.l. 0.5 each SL BID tablet 08/10/17 01/16/19 01/16/19 09:00 Rx [Suboxone 8 mg/2 mg] ATORVAstatin [Lipitor] 20 mg PO QHS 01/16/19 01/16/19 01/15/19 21:00 History Albuterol Sulfate [Albuterol 8.5 gm INHALATION PRN PRN 01/16/19 01/16/19 01/15/19 21:00 History Sulfate Hfa] Furosemide [Lasix] 40 mg PO DAILY 01/16/19 01/16/19 01/16/19 09:00 History Gabapentin 300 mg PO TID 01/16/19 01/16/19 01/16/19 09:00 History Metoprolol [Lopressor] 25 mg PO BID 01/16/19 01/16/19 01/16/19 09:00 History Montelukast Sodium [Singulair] 10 mg PO DAILY 01/16/19 01/16/19 01/16/19 09:00 History Nitroglycerin Sl [Nitroglycerin] 0.4 mg SUBLINGUAL PRN PRN 01/16/19 01/16/19 Unknown History Omeprazole [Prilosec] 20 mg PO DAILY@0700 01/16/19 01/16/19 01/16/19 06:00 History Potassium Chloride 10 meq PO QAM 01/16/19 01/16/19 01/16/19 09:00 History Sertraline HCl 50 mg PO QHS 01/16/19 01/16/19 01/15/19 History Clonazepam [Klonopin] 1 mg PO TID #20 tab 01/19/19 Unknown Rx - History of Present Illness -Gen Adult Nature of Presenting Problems: 68 y/o M presents to the ED complaining of chest pain and shortness of breath. States he felt some mild shortness of breath with a cough before going to bed last night and then awoke at about 130am with chest pain and increased dyspnea. per EMS pt markedly wheezy on their arrival and was given a duoneb with improvement. ALso given ntg with improvement of chest pain from 04/26 to 10/27. Cough non-productive no fever, no nausea, or diaphoresis Review of Systems - Adult - REVIEW OF SYSTEMS - ADULT Constitutional: reports: no symptoms reported Eyes: reports: no symptoms reported Ears, Nose, Mouth & Throat: reports: no symptoms reported Cardiovascular: reports: chest pain Respiratory: reports: cough, shortness of breath Gastrointestinal: reports: no symptoms reported Genitourinary: reports: no symptoms reported Musculoskeletal: reports: no symptoms reported Integumentary: reports: no symptoms reported Neurological: reports: no symptoms reported Psychiatric: reports: no symptoms reported Endocrine: reports: no symptoms reported Hematologic/Lymphatic: reports: no symptoms reported Allergic/Immunologic: reports: no symptoms reported All Other Systems: Reviewed and Negative Past History - Adult - PAST MEDICAL HISTORY-ADULT Review of Records: reports: Old Records Reviewed, Nursing Assessment Review, Medications Reviewed, Social history reviewed & non-contributory. Major Childhood Illnesses: reports: denies history Cardiovascular: reports: CAD, HTN, hyperlipidemia Respiratory: reports: COPD Gastrointestinal: reports: GERD, other (H.Pylori) Obstetrical/Gynecological: reports: denies history Genitourinary: reports: prostate cancer Musculoskeletal: reports: chronic pain (neck and back) Neurological: reports: denies history Psychiatric: reports: anxiety (severe) Endocrine/Immune: reports: denies history Other Conditions: reports: denies history - PRIOR SURGERIES/PROCEDURES Surgical/Procedure History: reports: cardiac stent - IMMUNIZATION STATUS Childhood Immunizations: See Nurse Assessment Flu Vaccine: See Nurse Assessment - FAMILY HISTORY Family History: reviewed, not pertinent Physical Exam-General - PHYSICAL EXAM-ADULT Initial Vital Signs Reviewed: Yes - CONSTITUTIONAL General Appearance: appears well, alert, no apparent distress - EYES Eyes: PERRL/EOMI - HEAD, EARS, NOSE, MOUTH & THROAT HENMT: normocephalic/atraumatic, moist mucous membranes, normal ENT inspection - NECK Neck: non-tender, full range of motion, supple - RESPIRATORY Respiratory: chest non-tender, lungs clear, normal breath sounds - CARDIOVASCULAR Cardiovascular: normal peripheral pulses, regular rate, rhythm, no JVD - GASTROINTESTINAL (ABDOMEN) Abdominal Exam: non tender, soft. negative: distended - MUSCULOSKELETAL Back Exam: normal inspection, no CVA tenderness, no vertebral tenderness Extremity: normal range of motion, non-tender, normal inspection - SKIN Integumentary: normal color, normal turgor, warm/dry - NEUROLOGIC Neurologic: grossly normal, no motor/sensory deficits - PSYCHIATRIC Psych/Mental Status: normal mood/affect, normal thought content, normal thought process, oriented x 3 Progress - PLAN OF CARE/RESULTS Progress/Plan/Lab Results: Orders Category Date Time Status IV Insertion ORDERED Care 03/27/19 03:26 Active CHEST-1 VIEW [RAD] Stat Exams 03/27/19 03:26 Ordered BASIC METABOLIC PANEL [CHEM] Stat Lab 03/27/19 03:26 Uncollected CBC WITH DIFF [HEME] Stat Lab 03/27/19 03:26 Uncollected PRO B-NATRIURETIC PEPTIDE Stat Lab 03/27/19 03:26 Uncollected TROPONIN T Stat Lab 03/27/19 03:26 Uncollected Nitroglycerin Med 03/27/19 03:26 Discontinued 1 inch TOP NOW ONE EKG [EKG] Stat Ther 03/27/19 03:20 Ordered chest pain and dyspnea will further evaluate for causes including but not limited to acs, arrythmia, pe, ptx pna, chf, copd Result Diagrams: 03/27/19 03:37 03/27/19 03:37 - REASSESSMENT Reassessment #1 Status: improving (dyspnea resolved, continued mild chest pressure but improved with NTG. ED work up unremarkable but presentation concerning for ACS. Will admit for further evaluation and treatment. Discussed case with Dr. Correa, hospitalist, who will see and admit pt.) - EKG 1 Time of EKG reading by physician:: 03:30 EKG Read and Signed by:: Clementina Monroe EKG Interpretation (*Must complete 3 of following elements*): Normal (Sinus Rhythm, rate 77, no acute st changes, normal axis and intervals) - XRAY 1 XRAY Study: Chest Impression: Normal Departure - Departure Date of Disposition Decision: 03/27/19 Time of Disposition Decision: 05:11 DIAGNOSIS: Chest pain Qualifiers: Chest pain type: unspecified Qualified Code(s): R07.9 - Chest pain, unspecified Disposition: ADMITTED INPATIENT 09 Certified Medical Emergency: Emergent Condition: Fair Referrals and Follow-Ups: Srinivas Wright MD [Primary Care Provider] - - Critical Care Note This patient required my direct & personal management of CC.: No Attestation - Physician/ NICOLLE Attestation Patient care was provided by Advanced Practice Provider:: No The physician spent face to face time with patient:: Yes Advanced Practice Provider documentation review:: Supervising physician onsite and consulted in the evaluation and care of this patient. The physician did have a face to face encounter with the patient.
[2019-03-27 03:47] LABS: BASO# 0.04 X1000 (0.0-0.2); BASO% 0.6 % (0.0-0.8); EOS# 0.25 X1000 (0.0-0.7); EOS% 3.9 % (0.0-10.0); HEMATOCRIT 30.6 % (42.0-52.0); HEMOGLOBIN 10.3 g/dL (14.0-18.0); LYMPH# 2.11 X1000 (1.2-3.4); LYMPH% 32.9 % (20.5-51.1); MCH 27.2 PG (27-31); MCHC 33.7 g/dL (33-37); MONO# 0.71 X1000 (0.11-0.59); MONO% 11.1 % (1.7-9.3); MPV 9.2 FL (7.4-10.4); NEUT% 51.5 % (42.2-75.2); PLT 203 X1000 (130-400); RBC 3.78 XMIL (4.7-6.1); RDW 12.3 % (11.5-14.5); WBC 6.41 X1000 (4.8-10.8)
[2019-03-27 04:26] LABS: AGAP 9; BUN 10 mg/dL (8-22); CHLORIDE 90 mmol/L (98-107); COSMO 270; CREATININE 0.8 mg/dL (0.7-1.2); ESTIMATED GFR > 60; GLUCOSE 115 mg/dL (70-104); SODIUM 135 mmol/L (136-145); TCO2 36 mmol/L (25-35)
[2019-03-27] MEDS ORDERED: NITROGLYCERIN SL PRN (05:32)
[2019-03-27] MEDS ORDERED: ZOFRAN IV PRN (05:32)
[2019-03-27] MEDS ORDERED: TYLENOL PO PRN (05:32)
[2019-03-27] MEDS ORDERED: VENTOLIN HFA INH PRN (05:34)
[2019-03-27] MEDS ORDERED: LOVENOX SUBQ SCH (05:45)
--- NOTE | 2019-03-27 06:30 | HISTORY AND PHYSICAL ---
CHIEF COMPLAINT: Chest pain and shortness of breath. HISTORY OF PRESENT ILLNESS: Mr. Madrigal is a 68-year-old male who is known to have COPD. He is on 2 L nasal cannula home O2 with mild aortic stenosis, hypertension, hyperlipidemia, anxiety and depression, history of opiate abuse, now on Suboxone, chronic neck and back pain as well as coronary artery disease status post cardiac stenting. Mr. Madrigal was having a mild cough and shortness of breath before he went to bed last night. He was feeling better so he lie down. He woke up around 1:30 with acute chest pain and dyspnea so he called EMS and came into the emergency room. Initial workup in the emergency room is negative. Cardiac enzymes are negative and chest x- ray does not show any increased pulmonary vascular congestion or effusion. He will be placed in observation status for further evaluation and treatment. PAST MEDICAL HISTORY: See HPI. PREVIOUS SURGICAL HISTORY: Stent placement two to three years ago. SOCIAL HISTORY: Lives at home with a two to [id number]-zbai-m-day smoker for many years. However, he quit around two to three years ago after receiving his cardiac stent. No alcohol. No illicit drugs. FAMILY HISTORY: Positive for coronary artery disease. ALLERGIES: Penicillin and Levaquin. HOME MEDICATIONS: DuoNeb four times a day, Suboxone 8/2 0.5 sublingual b.i.d., aspirin 81 mg p.o. daily, albuterol inhaler p.r.n., omeprazole 20 mg p.o. daily, atorvastatin 20 mg p.o. nightly, Neurontin 300 mg p.o. t.i.d., Singulair 10 mg p.o. daily, nitroglycerin 0.4 mg sublingual p.r.n., sertraline 50 mg p.o. nightly, potassium chloride 10 mEq p.o. q a.m., furosemide 40 mg p.o. daily, metoprolol 25 mg p.o. b.i.d., Klonopin 1 mg p.o. t.i.d., meclizine 25 mg p.o. daily, Trelegy Ellipta 100/62.5/25 one inhalation daily. REVIEW OF SYSTEMS: Fourteen-point review of systems conducted with the patient. He denied nausea, vomiting, diaphoresis. The pain did not radiate into his neck, back or jaw. He did have dyspnea at rest as well as dyspnea on exertion. He denied bowel or bladder complaints. Other pertinent positives are listed above in the HPI. All other systems reviewed and found to be negative. PHYSICAL EXAMINATION: VITAL SIGNS: Temperature 98.4, pulse 81, respirations 12, blood pressure 127/62, oxygen saturation 97% on 2 L nasal cannula. GENERAL: Pleasant 68-year-old male lying in the ER stretcher, answers all questions appropriately, is alert and oriented times 3. In no acute distress. HEENT: Head is atraumatic, normocephalic. Pupils equal, round, reactive to light. Extraocular eye movement is intact. Sclerae are anicteric. Conjunctiva is pale. Oral mucosa is moist. NECK: Supple. No JVD. No thyromegaly. Trachea is midline. No cervical lymphadenopathy. CARDIAC: S1, S2 appreciated. No murmurs, gallops, rubs. LUNGS: Clear to auscultation bilaterally. Mild expiratory wheeze that clears with cough. No rhonchi, rales. Symmetric rise and fall with respirations. ABDOMEN: Soft, nondistended, nontender. Bowel sounds present all 4 quadrants, normoactive. EXTREMITIES: No clubbing or cyanosis. One-plus nonpitting edema mid calf to foot. Two-plus pedal pulses bilaterally. GENITOURINARY: No bladder distention. Patient voids. Otherwise deferred. NEUROLOGICAL: Alert and oriented times 3. No focal or motor deficits. Otherwise nonfocal examination. DIAGNOSTIC DATA: Chest x-ray: No effusions. No infiltrates. No pulmonary edema. LABORATORY DATA: WBC 6.41. Hemoglobin 10.3. Hematocrit 30.6. Platelet count 203. Sodium 135. Potassium 4. Chloride 90. Carbon dioxide 36. BUN 10. Creatine 0.8. Glucose 115. ProBNP 270. ASSESSMENT AND PLAN: 1. Chest pain. Rule out acute myocardial infarction. Patient did have a stress test and echo in January which were normal. Will trend cardiac enzymes. Consult Cardiology. 2. Chronic obstructive pulmonary disease without exacerbation. Continue bronchodilators and other home medications. 3. Mild aortic stenosis. Aware. 4. Anxiety and depression. Continue home medications. 5. Chronic opiate use secondary to neck and back pain. Continue Suboxone. 6. Hypertension. Continue home medications. 7. Hyperlipidemia. Continue home medications. Further recommendations per patient clinical course. Dictated by HERBER Berrios for Kavon Muñoz MD cc: HERBER Berrios MD
[2019-03-27] MEDS ORDERED: NON-FORMULARY BULK MED INH SCH (07:30)
[2019-03-27] MEDS: PRILOSEC PO SCH (07:30)
--- NOTE | 2019-03-27 07:52 | EKG Report ---
Test Performed on : 03/27/2019 03:29:53 AM Test Reason : CP Blood Pressure : / mmHG Vent. Rate : 077 BPM Atrial Rate : 077 BPM P-R Int : 146 ms QRS Dur : 082 ms QT Int : 374 ms P-R-T Axes : 064 044 043 degrees QTc Int : 423 ms Normal sinus rhythm. Normal ECG When compared with ECG of 17-JAN-2019 06:49, No significant change was found Unconfirmed Result
[2019-03-27] MEDS: DUONEB (A & A) INH SCH ×3 (08:09→21:10)
--- NOTE | 2019-03-27 08:20 | Diag Imaging Result Doc PS360 ---
EXAM: CHEST-1 VIEW INDICATION: chest pain TECHNIQUE: One view COMPARISON: 01/19/2019 FINDINGS: The lungs are clear. There is no discrete pleural fluid collection or pneumothorax. The cardiomediastinal silhouette and central vasculature are grossly unremarkable. IMPRESSION: No evidence of acute pathology by plain radiograph. Electronically signed by Ankur Singleton 03/27/2019 8:18 AM
[2019-03-27] MEDS: LOPRESSOR PO SCH (08:30)
[2019-03-27] MEDS: SINGULAIR PO SCH (08:31)
[2019-03-27] MEDS: NEURONTIN PO SCH ×2 (08:31→14:50)
[2019-03-27] MEDS: LASIX PO SCH (08:31)
[2019-03-27] MEDS: ASPIRIN EC PO SCH (08:31)
[2019-03-27] MEDS: KLOR-CON PO SCH (08:32)
[2019-03-27] MEDS: ANTIVERT PO SCH (08:32)
[2019-03-27] MEDS: KLONOPIN PO SCH ×2 (08:35→14:49)
[2019-03-27] MEDS: SUBOXONE 8 MG/2 MG SL SCH (08:44)
--- NOTE | 2019-03-27 09:51 | EKG Report ---
Test Performed on : 03/27/2019 06:42:04 AM Test Reason : ED. NO EKG ORDER FOR MUSE Blood Pressure : / mmHG Vent. Rate : 073 BPM Atrial Rate : 073 BPM P-R Int : 140 ms QRS Dur : 078 ms QT Int : 378 ms P-R-T Axes : 019 050 051 degrees QTc Int : 416 ms Normal sinus rhythm. Normal ECG When compared with ECG of 27-MAR-2019 03:29, (Unconfirmed) No significant change was found Unconfirmed Result
[2019-03-27 10:20] LABS: HEMATOCRIT 29.3 % (42.0-52.0); HEMOGLOBIN 9.9 g/dL (14.0-18.0); MCH 27.6 PG (27-31); MCHC 33.8 g/dL (33-37); MCV 81.6 FL (81-99); MPV 9.3 FL (7.4-10.4); RBC 3.59 XMIL (4.7-6.1); RDW 12.3 % (11.5-14.5); WBC 6.28 X1000 (4.8-10.8)
[2019-03-27 10:47] LABS: AGAP 8; BUN 11 mg/dL (8-22); CHLORIDE 90 mmol/L (98-107); COSMO 268; CREATININE 0.8 mg/dL (0.7-1.2); ESTIMATED GFR > 60; GLUCOSE 102 mg/dL (70-104); POTASSIUM 4.3 mmol/L (3.5-5.1); SODIUM 134 mmol/L (136-145); TCO2 36 mmol/L (25-35)
[2019-03-27] MEDS ORDERED: KLONOPIN ONE (14:49)
[2019-03-27] MEDS ORDERED: LOVENOX SUBQ ONE (15:00)
--- NOTE | 2019-03-27 15:41 | CARDIOLOGY CONSULTATION ---
DATE: 03/27/2019 REASON FOR THE CONSULTATION: Chest pain. HISTORY OF PRESENT ILLNESS: Mr. Madrigal is a 68-year-old white male with a history of PCI, COPD. He presents today for evaluation of chest tightness that occurred yesterday at rest, lasted for over an hour. The patient is an extremely poor historian, not able to be more descriptive of the episodes as far as the duration. It was located in a band-like distribution across the lower chest. There was no exertional component. He reports compliance with his medications. No associated nausea, vomiting, or diaphoresis. PAST MEDICAL HISTORY: 1. Significant for coronary disease. Last cardiac catheterization was in July 2017 showing diffuse mild calcification of the left main. The LAD had a proximal to mid 40 to 50% lesion. Circumflex had sequential 40 to 50% lesions after a first obtuse marginal. The origin of the RCA had a proximal patent stent. The PDA had 50% lesions. 2. Aortic stenosis. Most recent echo was in January of 2019 showing a mean gradient of 27, a valve area of 1.1. Normal ejection fraction. 3. Hypertension. 4. Hyperlipidemia. 5. COPD with continued tobacco abuse and home oxygen therapy. 6. Prostate cancer. 7. Carotid artery disease. SOCIAL HISTORY: Lives at home. Two to 3 packs per day smoker but subsequently quit 2 to 3 years ago. FAMILY HISTORY: Significant for coronary disease. REVIEW OF SYSTEMS: A 10 system review of systems is negative except for those things mentioned in the HPI. PHYSICAL EXAMINATION: Vital signs: The patient is afebrile. His heart rate is 64, blood pressure 127/57. General: No acute distress. HEENT: Oropharynx is moist. Poor dentition. Eye examination shows pink conjunctivae, white sclerae. Neck: Shows no obvious thyromegaly or thyroid tenderness. Cardiovascular: He sounds to be in a regular rate and rhythm. He has no obvious murmurs. He has no S3. He has no lower extremity edema. Chest: Clear bilaterally. He had very distant breath sounds. No audible wheezes. Decreased air movement. Abdomen: Soft, nontender, nondistended. He has no obvious organomegaly. Skin: Warm and dry throughout without any rashes. Neurological: Moving all extremities well. No lateralizing deficits. Psychiatric: Alert, oriented, pleasant. Normal mood and affect. PERTINENT DATA: Chest x-ray shows no evidence of any acute chest pathology. His EKG reviewed by me shows sinus rhythm, no signs of ischemic changes. Subsequent EKG at 6:42 this morning, sinus rhythm, no obvious ischemic changes. His white count is 6.2, hematocrit 29. His platelet count is 197,000. His sodium is 134, potassium 4.3, BUN is 11, creatinine 0.8. Cardiac enzymes are negative. His proBNP is 270. ASSESSMENT: Mr. Madrigal is a 68-year-old gentleman who presented for evaluation of chest discomfort. PLAN: We will treat this as unstable angina. I will give him 1 dose of Lovenox. His nuclear scan showed a fixed defect back in January in the inferior apical wall. Ejection fraction was normal at 74%. He has had continued episodes of chest pain with previous PCI. I will plan for cardiac catheterization in the morning. We will give him 1 dose of Lovenox. He is on aspirin. I will increase his atorvastatin to [address] him on high-intensity therapy given his known previous history. Risks, benefits, and alternatives to the procedure have been discussed with the patient and presently he agrees to proceed. I have ordered him a diet for this evening. cc: Iglesia Hensley MD MTDD
[2019-03-27] MEDS ORDERED: ZOLOFT PO SCH (21:00)
[2019-03-27] MEDS ORDERED: LIPITOR PO SCH ×2 (21:00)
[2019-03-28] MEDS: SUBOXONE 8 MG/2 MG SL SCH ×2 (02:15→12:07)
[2019-03-28] MEDS: KLONOPIN PO SCH ×4 (02:15→14:11)
[2019-03-28] MEDS: LOPRESSOR PO SCH ×2 (02:15→09:09)
[2019-03-28] MEDS: NEURONTIN PO SCH ×3 (02:16→14:11)
[2019-03-28] MEDS: DUONEB (A & A) INH SCH ×3 (03:09→15:37)
[2019-03-28 07:06] LABS: BASO# 0.03 X1000 (0.0-0.2); BASO% 0.4 % (0.0-0.8); EOS# 0.17 X1000 (0.0-0.7); EOS% 2.3 % (0.0-10.0); HEMATOCRIT 30.3 % (42.0-52.0); HEMOGLOBIN 10.2 g/dL (14.0-18.0); INR 0.92; LYMPH# 1.63 X1000 (1.2-3.4); LYMPH% 22.1 % (20.5-51.1); MCH 27.5 PG (27-31); MCHC 33.7 g/dL (33-37); MCV 81.7 FL (81-99); MONO# 0.76 X1000 (0.11-0.59); MONO% 10.3 % (1.7-9.3); MPV 9.6 FL (7.4-10.4); NEUT# 4.77 X1000 (1.4-6.5); NEUT% 64.9 % (42.2-75.2); PLT 207 X1000 (130-400); PROTIME 13.1 Seconds (11.0-16.0); RBC 3.71 XMIL (4.7-6.1); RDW 12.2 % (11.5-14.5); WBC 7.36 X1000 (4.8-10.8)
--- NOTE | 2019-03-28 07:11 | EKG Report ---
Test Performed on : 03/28/2019 06:49:01 AM Test Reason : cp Blood Pressure : / mmHG Vent. Rate : 078 BPM Atrial Rate : 078 BPM P-R Int : 152 ms QRS Dur : 080 ms QT Int : 372 ms P-R-T Axes : 067 060 056 degrees QTc Int : 424 ms Normal sinus rhythm. Normal ECG When compared with ECG of 27-MAR-2019 06:42, (Unconfirmed) No significant change was found Confirmed by Jaqueline GOMEZ, Flo Armenta ([id number]) on 03/28/2019 10:02:03 AM
[2019-03-28 07:47] LABS: AGAP 11; BUN 12 mg/dL (8-22); CALCIUM 9.2 mg/dL (8.8-10.2); CHLORIDE 90 mmol/L (98-107); CHOLESTEROL 200 mg/dL (0-200); COSMO 272; CREATININE 0.9 mg/dL (0.7-1.2); ESTIMATED GFR > 60; GLUCOSE 111 mg/dL (70-104); HDL 31 mg/dL (35-55); LDL 136 mg/dL; MAGNESIUM 1.7 mg/dL (1.5-2.7); POTASSIUM 3.7 mmol/L (3.5-5.1); SODIUM 136 mmol/L (136-145); TCO2 35 mmol/L (25-35); TRIGLYCERIDES 165 mg/dL (39-160); VLDL 33 mg/dL
[2019-03-28] MEDS ORDERED: MAGNESIUM SULFATE 2 GM/S.W.I. 2 GM/50 ML IVPB IV ONE (08:23)
[2019-03-28] MEDS ORDERED: HEPARIN 1000 UNITS/NS 2,000 UNIT/1,000 ML IV.SOLN ONE (11:06)
[2019-03-28] MEDS ORDERED: NITROGLYCERIN ONE (11:18)
[2019-03-28] MEDS ORDERED: HEPARIN ONE (11:18)
[2019-03-28] MEDS ORDERED: SODIUM CHLORIDE 0.9% 20 ML ONE (11:18)
[2019-03-28] MEDS: PRILOSEC PO SCH (12:07)
[2019-03-28] MEDS: SINGULAIR PO SCH (12:07)
[2019-03-28] MEDS: ANTIVERT PO SCH (12:08)
[2019-03-28] MEDS: KLOR-CON PO SCH (12:08)
[2019-03-28] MEDS: LASIX PO SCH (12:08)
[2019-03-28] MEDS: ASPIRIN EC PO SCH (12:08)
[2019-03-28] MEDS ORDERED: NS 1,000 ML ONE (12:27)
[2019-03-28] MEDS ORDERED: ANESTHESIA PB SET 88 IN 5742 ONE (12:27)
[2019-03-28] MEDS ORDERED: CLAVE TWINSITE 32 IN 11959 ONE (12:27)
[2019-03-28] MEDS ORDERED: VERSED ONE (12:28)
[2019-03-28] MEDS ORDERED: DILAUDID ONE (12:28)
--- NOTE | 2019-03-28 14:03 | CARDIAC CATH REPORT ---
DATE: 03/28/2019 INDICATIONS: Unstable angina. PROCEDURES PERFORMED: 1. Left heart catheterization. 2. Selective coronary angiography. 3. Left ventriculogram. PROCEDURE IN DETAIL: Mr. Madrigal was brought to the Catheterization Laboratory in a fasting state. Informed consent was obtained. Prepped in the usual sterile fashion. He was anesthetized over the right radial artery after Flo's test proved adequate. A 5 Telugu sheath was placed via true Seldinger technique. A radial cocktail was administered. Catheters were introduced. Hemodynamic measurements were made of the ascending thoracic aorta. Coronary angiography was performed in multiple views using JL3.5 and JR4 diagnostic catheters. Left heart catheterization and left ventriculogram were performed sing the JR4. At the conclusion of the procedure all sheaths and catheters were removed. The TR band was left inflated at 10 mL of air. Good capillary refill. Good hemostasis. Then 80 mL of IV contrast, 5 to 10 mL of blood loss. FINDINGS: 1. The left main has minor luminal irregularities. 2. The left anterior descending has proximal 20% to 30% disease followed by mild luminal irregularities in the mid to distal vessel. 3. The circumflex has a proximal 50-60% lesion at the origin of a sizable obtuse marginal. The first OM as well as the second OM are large vessels with minimal luminal irregularities. The remainder of the circumflex has minor luminal irregularities. 4. The right coronary artery has a 50% to 60% ostial lesion followed by mild luminal irregularities in the proximal vessel. The proximal stent is patent with no evidence of significant in-stent stenosis. The terminal branches of the right coronary being the PDA and an RV branch have 40% to 50% proximal disease. 5. Ejection fraction was 60% with normal wall motion. 6. Aortic blood pressure 122/67 with a mean of 90 mmHg. 7. Left ventricular pressure 158/16 with an LVEDP of 25 mmHg. ASSESSMENT: Mr. Madrigal is a 68-year-old gentleman with a history of coronary artery disease and previous percutaneous coronary intervention. He presented with chest discomfort that was described as a tightening sensation. PLAN: His nuclear scan recently did not have any ischemic defects. He does not appear to have any significant flow-limiting lesions. Currently I would continue to treat him with antianginal therapy. Currently, he is on a beta patrica. His LVEDP is elevated. I will increase his furosemide to 40 mg b.i.d. We will continue him on atorvastatin which has been escalated up to 80 mg. He is having some headache, I believe, with the current nitroglycerin which we will discontinue. I will start him on 2.5 mg of amlodipine daily. cc: Iglesia Hensley MD MTDD
--- NOTE | 2019-03-28 14:13 | CARDIOLOGY PROGRESS NOTE ---
DATE: 03/28/2019 SUBJECTIVE: Mr. Madrigal has no complaints of chest pain today. OBJECTIVE: On physical, he is afebrile. His heart rate is 76. His most recent blood pressure this morning is 160/57. Most systolics were in the 110s to 120s. Generally, he is in no acute distress. Cardiovascularly, he sounds to be in a regular rate and rhythm. He has no obvious murmurs. He has no S3. His chest exam had minimal expiratory wheezes. He had no increased work of breathing. His abdomen is soft, nontender. PERTINENT DATA: His LDL was 136. BUN 12 and creatinine 0.9. Hematocrit 30 which is roughly stable. ASSESSMENT: Mr. Madrigal is a 68-year-old gentleman with history of coronary disease, who presented with chest tightness. PLAN: We will proceed with cardiac catheterization today per previous recommendations yesterday. Risks, benefits, and alternatives were again discussed with the patient, and he agrees to proceed. Tentative plan is to pursue this around noon. cc: Iglesia Hensley MD
[2019-03-28 15:51] VITALS: BP 112/62
[2019-03-28] MEDS ORDERED: LIPITOR PO SCH (21:00)
[2019-03-28] MEDS ORDERED: LASIX PO SCH (21:00)
[2019-03-29] MEDS ORDERED: NORVASC PO SCH (09:00)
--- NOTE | 2019-03-29 18:20 | DISCHARGE SUMMARY ---
ADMISSION DATE: 03/27/2019 DISCHARGE DATE: 03/28/2019 DISCHARGE DIAGNOSES: 1. Chest pain. Acute coronary syndrome has been ruled out. 2. Chronic obstructive pulmonary disease not in any exacerbation. 3. Mild aortic stenosis. 4. Anxiety and depressive disorder. 5. Chronic opiate use secondary to neck and back pain. 6. Hypertension. 7. Hyperlipidemia. CONSULTATIONS: Dr. Iglesia Hensley from Cardiology. PROCEDURES: 1. Chest x-ray done on admission showed no evidence of acute pathology by plain radiograph. 2. Cardiac catheterization showed ejection fraction of 60% with the LAD with 20% to 30% disease, and the recommendation from that study is continue to treat him with antianginal therapy. HOSPITAL COURSE: This is a 68-year-old male with history of COPD, who presented to the emergency department complaining of chest pain that woke him up around 1:30 on the date of admission along with dyspnea so he was brought by ambulance to the hospital. Cardiac enzymes are negative. Chest x-ray does not show any increased pulmonary vascular congestion. Because of his past medical history, we have consulted Cardiology, who decided to proceed with a left heart catheterization with results as above. The patient is not complaining of any chest pain. Cardiology has made some changes to his current medications. The patient is being released in stable condition. DISCHARGE PHYSICAL EXAMINATION: Vital signs: Temperature 98.2 degrees, heart rate 80, respiratory rate 14, blood pressure 112/62, O2 saturation 94% on 2 L nasal cannula. General: This is a 68-year-old male, lying in bed, in no acute distress. Cardiovascular: S1, S2 heard. No murmurs, gallops, or rubs. Regular rate and rhythm. Respiratory: Clear bilaterally to auscultation. No work of breathing or using accessory muscles. Abdomen: Soft. Nontender to palpation. Bowel sounds present. No organomegaly. Extremities: No clubbing, cyanosis, or edema. Peripheral pulses present in both legs. Neurologic: Patient alert oriented x3. Moves 4 extremities. DISCHARGE DISPOSITION: Home to self-care. FOLLOW-UP: Follow up with Dr. Andersen from Cardiology as already scheduled. DISCHARGE MEDICATIONS: 1. Amlodipine 2.5 mg 1 tablet p.o. daily. 2. DuoNeb 4 times per day as needed. 3. Suboxone 8/2 mg 1 tablet p.o. b.i.d. 4. Aspirin 81 mg 1 tablet p.o. daily. 5. Omeprazole 20 mg 1 tablet p.o. daily. 6. Atorvastatin 20 mg 1 tablet p.o. daily. 7. Gabapentin 300 mg 1 tablet p.o. 3 times per day. 8. Singular 10 mg 1 tablet p.o. daily. 9. Nitroglycerin 0.4 mg sublingual as needed for chest pain. 10. Sertraline 50 mg 1 tablet p.o. at bedtime. 11. Potassium chloride 10 mg 1 tablet p.o. in the morning. 12. Metoprolol 25 mg p.o. b.i.d. 13. Meclizine 25 mg p.o. daily. 14. Trelegy Ellipta 100 mcg/62.5 mcg/25 mcg 1 inhalation daily. 15. Klonopin 1 mg p.o. 3 times per day. 16. Lasix 40 mg 1 tablet p.o. bid DISCHARGE TIME: 35 minutes. cc: Noble Hernandez MD MTDD
== END 2019-03-28 18:06 | disposition home or self-care (01) ==
LOC: SUPCPDRO → EDIPHOLD 03:19 → ED 03:19 → SUATTDRO 06:13 → 3N 22:36 → 3S 03-28 14:00
PROVIDERS: ATTEND Internal Medicine
CPT/HCPCS: 71010; 71045; 80048; 80061; 83735; 83880; 84484; 85025; 85027; 85610; 93005; 93010; 93458; 94640; 94761; A9270; J1170; J1644; J1650; J2250; J3475; J7030; Q9967